=== PATIENT | male | born 1965 | race Hispanic/Latino ===

== ENCOUNTER 2019-02-27 08:20 | Outpatient (CLI) | payer BC ==
--- NOTE | 2019-02-27 11:22 | MRI ---
MRI RIGHT KNEE: Date: 02-27-19 Provided Clinical History: Right knee pain. FINDINGS: The anterior cruciate ligament, posterior cruciate ligament, medial collateral ligament and lateral c ollateral ligamentous complex demonstrate an intact MR appearance, as does the extensor mechanism. The medial and lateral menisci demonstrate no evidence for tear. No focal articular cartilage defect is apparent. The a mount of fluid within the knee joint appears physiologic. No focal concerning regional marrow o r muscular signal abnormality is evident. IMPRESSION: No evidence for internal derangement. POS: OFF
== END 2019-02-27 08:21 | disposition home or self-care (01) ==
LOC: BICMRI 08:20
PROVIDERS: ATTEND Orthopaedic Surgery
DX: M23.91 Unspecified internal derangement of right knee (principal)